=== PATIENT | female | born 1930 | race Caucasian/White ===

== ENCOUNTER → 2017-03-30 | Outpatient (CLI) | payer MEDICARE, OTHER ==
[~2017-03-30] MED LIST: CLON1 PO; DEXL30CA3 PO; METO25 PO; SIMV20TA6 PO; SUCR1ORA5 PO
== END | disposition home or self-care (01) ==
LOC: RADPV 12:06
PROVIDERS: ATTEND Family Medicine
DX: M16.0 Bilateral primary osteoarthritis of hip (principal); M47.816 Spondylosis without myelopathy or radiculopathy, lumbar region; M41.86 Other forms of scoliosis, lumbar region; M76.892 Other specified enthesopathies of left lower limb, excluding foot; M43.16 Spondylolisthesis, lumbar region; M79.605 Pain in left leg; M41.85 Other forms of scoliosis, thoracolumbar region; M85.88 Other specified disorders of bone density and structure, other site; M81.0 Age-related osteoporosis without current pathological fracture; M48.061 Spinal stenosis, lumbar region without neurogenic claudication; M48.07 Spinal stenosis, lumbosacral region
CPT/HCPCS: 72100; 73521

== ENCOUNTER → 2017-11-28 | Outpatient (CLI) | payer MEDICARE, OTHER | END | disposition home or self-care (01) | LOC: RADPV 09:10 | PROVIDERS: ATTEND Family Medicine | DX: I83.813 Varicose veins of bilateral lower extremities with pain (principal); R20.0 Anesthesia of skin; R20.2 Paresthesia of skin | CPT/HCPCS: 93925; 93970 ==

== ENCOUNTER 2019-06-03 14:08 | Inpatient (IN) | payer MEDICARE, OTHER ==
[~2019-06-03] VITALS: Ht 147.3 cm; Wt 59.9 kg
[~2019-06-03 14:08] MED LIST changes: -CLON1 PO; +MEMA10TA11 PO; +PIMA34CA PO; +QUET25TA PO; +SIMV-43 PO; -SIMV20TA6 PO; +SUCR1ORA15 PO; -SUCR1ORA5 PO
[2019-06-03] MEDS ORDERED: PROP10TA73 PO (14:18)
[2019-06-03] MEDS ORDERED: ISOS5TAB5 PO (14:18)
[2019-06-03] MEDS ORDERED: AMLO5TAB9 PO (14:18)
[2019-06-03] MEDS ORDERED: ONDANSETRON HCL 4 MG/2 ML VIAL IM ONE (15:00)
[2019-06-03] MEDS ORDERED: MORPHINE SULFATE 4 MG/ML SYRINGE IM ONE (15:00)
[2019-06-03] MEDS ORDERED: AMLO10TA7 PO (15:08)
[2019-06-03] MEDS ORDERED: ALEN70TA10 PO (15:08)
[2019-06-03] MEDS ORDERED: DEXL60CA3 PO (15:08)
[2019-06-03] MEDS ORDERED: OXYC-530 PO (15:08)
[2019-06-03] MEDS ORDERED: TRAZ-252 PO (15:08)
[2019-06-03] MEDS ORDERED: MEMA28CA5 PO (15:08)
[2019-06-03] MEDS ORDERED: ISOS60TA4 PO (15:08)
[2019-06-03] MEDS ORDERED: CYPR4TAB46 PO (15:08)
[2019-06-03] MEDS ORDERED: PROP40TA7 PO (15:08)
[2019-06-03] MEDS ORDERED: DONE10TA43 PO (15:08)
[2019-06-03] MEDS ORDERED: MORPHINE SULFATE 4 MG/ML SYRINGE IVP ONE (16:30)
[2019-06-03 16:48] LABS: BASOPHILS % (AUTO) 0.3 % (0.0-2.0); EOSINOPHILS % (AUTO) 0 % (1.0-6.0); HEMATOCRIT 36.8 % (36-46); HEMOGLOBIN 12.2 g/dL (12.0-16.0); LYMPHOCYTES % (AUTO) 8.5 % (22.0-44.0); MEAN CORPUSCULAR HEMOGLOBIN 26.9 pg (26.0-34.0); MEAN CORPUSCULAR HGB CONC 33.1 G/dL (31.0-37.0); MEAN CORPUSCULAR VOLUME 81 fL (80-100); MONOCYTES # (AUTO) 0.8 K/uL (0.1-1.0); MONOCYTES % (AUTO) 6.6 % (2.0-9.0); NEUTROPHILS # (AUTO) 10.3 K/uL (1.8-7.7); NEUTROPHILS % (AUTO) 84.6 % (40.0-70.0); PLATELET COUNT (AUTO) 365 K/uL (150-450); RED BLOOD CELL COUNT(AUTO) 4.52 MIL/uL (4.00-5.20); RED CELL DISTRIBUTION WIDTH 16.3 % (11.5-14.5)
[2019-06-03 17:03] LABS: ANION GAP 6 mmol/L (8-16); CALCIUM, TOTAL 9.3 mg/dL (8.8-10.5); CARBON DIOXIDE 28 mmol/L (22-29); CHLORIDE 103 mmol/L (98-107); CREATININE 0.85 mg/dL (0.60-1.30); GLUCOSE,RANDOM 152 mg/dL (70-110); POTASSIUM 4.4 mmol/L (3.5-5.1); SODIUM SERUM 137 mmol/L (136-145); UREA NITROGEN, BLOOD 13 mg/dL (7-18)
[2019-06-03 17:08] LABS: GLOMERULAR FILTR. RATE CALC > 60 mL/min (>60)
[2019-06-03 17:09] LABS: ALANINE AMINOTRANSFERASE 21 U/L (12-78); ALBUMIN 3.1 g/dL (3.4-5.0); ALKALINE PHOSPHATASE 103 U/L (46-116); ASPARTATE AMINOTRANSFERASE 21 U/L (15-37); BILIRUBIN,TOTAL 0.5 mg/dL (0.1-1.0); TOTAL PROTEIN, SERUM 7.4 g/dL (6.4-8.2)
[2019-06-03 17:28] LABS: PROTHROMBIN TIME 10.6 SEC (9.4-11.6)
[2019-06-03] MEDS ORDERED: ACETAMINOPHEN 325 MG TABLET PO PRN ×2 (20:30→23:30)
[2019-06-03] MEDS ORDERED: 0.9% SODIUM CHLORIDE 10 ML SYRINGE IVP PRN (20:30)
[2019-06-03] MEDS ORDERED: ONDANSETRON HCL 4 MG/2 ML VIAL IVP PRN ×2 (20:30→23:30)
[2019-06-03 20:47] VITALS: BP 158/68
[2019-06-03] MEDS ORDERED: SIMVASTATIN 20 MG TABLET PO SCH (23:15)
[2019-06-03] MEDS ORDERED: TraZODone HCL 50 MG TABLET PO SCH (23:15)
[2019-06-03] MEDS ORDERED: IPRATROPIUM BROMIDE 0.5 MG/2.5 ML NEB SOLUTION NEB PRN (23:30)
[2019-06-03] MEDS ORDERED: HYDROCODONE/ACETAMINOPHEN 5-325 MG TABLET PO PRN (23:30)
[2019-06-03] MEDS ORDERED: ZOLPIDEM TARTRATE 5 MG TABLET PO PRN (23:30)
[2019-06-03] MEDS ORDERED: BISACODYL 10 MG RECTAL RECTAL SUPPOSITORY PR PRN (23:30)
[2019-06-03] MEDS ORDERED: ALBUTEROL SULFATE 2.5 MG/0.5 ML NEB SOLUTION NEB PRN (23:30)
[2019-06-03] MEDS ORDERED: MAGNESIUM HYDROXIDE SUSPENSION 30 ML UDCUP PO PRN (23:30)
[2019-06-03 23:49] VITALS: BP 139/68
[2019-06-04] MEDS: HEPARIN SODIUM,PORCINE 5,000 UNITS/ML VIAL SQ SCH ×4 (00:03→23:28)
[2019-06-04 04:25] VITALS: BP 142/66
[2019-06-04] MEDS ORDERED: RINGERS SOLUTION,LACTATED 1,000 ML IV ONE ×2 (05:50→06:00)
[2019-06-04] MEDS ORDERED: BUPIVACAINE/EPI/PF 0.5% 30 ML VIAL ONE (05:55)
[2019-06-04] MEDS ORDERED: BUPIVACAINE LIPOSOME/PF 1.3%-13.3MG/ML SUSPENSION 20 ML VIAL INJ ONE (06:00)
[2019-06-04] MEDS ORDERED: SUGAMMADEX SODIUM 200 MG/2 ML VIAL IVP ONE (06:22)
[2019-06-04] MEDS ORDERED: LANSOPRAZOLE 30 MG CAPSULE PO SCH (06:30)
[2019-06-04] MEDS ORDERED: ALENDRONATE SODIUM 70 MG TABLET PO SCH (06:30)
[2019-06-04] MEDS ORDERED: FentaNYL CITRATE-PF 100 MCG/2 ML VIAL IVP PRN (07:15)
[2019-06-04] MEDS ORDERED: HYDROmorphone 2 MG/ML SYRINGE IVP PRN (07:15)
[2019-06-04] MEDS ORDERED: BusPIRone HCL 15 MG TABLET PO PRN (09:00)
[2019-06-04] MEDS ORDERED: MEMANTINE HCL 10 MG TABLET PO SCH ×2 (09:00→21:00)
[2019-06-04] MEDS ORDERED: BusPIRone HCL 15 MG TABLET PO SCH (09:00)
[2019-06-04] MEDS ORDERED: SUCRALFATE 1 GM/10 ML SUSPENSION UDCUP PO SCH (09:00)
[2019-06-04] MEDS ORDERED: PIMAVANSERIN TARTRATE 34 MG PO SCH (09:00)
[2019-06-04] MEDS ORDERED: PROPRANOLOL HCL 40 MG TABLET PO SCH ×2 (09:00)
[2019-06-04 09:05] VITALS: BP 145/66
[2019-06-04] MEDS: ISOSORBIDE MONONITRATE 60 MG ER TABLET PO SCH (09:24)
[2019-06-04] MEDS: QUEtiapine FUMARATE 25 MG TABLET PO SCH ×2 (09:24→21:29)
[2019-06-04] MEDS: PROPRANOLOL HCL 40 MG TABLET PO SCH ×2 (09:25→21:36)
[2019-06-04] MEDS: DEXLANSOPRAZOLE 60 MG PO SCH (09:26)
[2019-06-04] MEDS: AmLODIPine BESYLATE 10 MG TABLET PO SCH (09:29)
[2019-06-04] MEDS: DOCUSATE SODIUM 100 MG CAPSULE PO SCH ×2 (09:29→21:28)
[2019-06-04 11:26] VITALS: BP 138/64
[2019-06-04 15:49] VITALS: BP 134/63
[2019-06-04] MEDS: OxyCODONE HCL/ACETAMINOPHEN 5-325 MG TABLET PO PRN (18:44)
[2019-06-04 20:05] VITALS: BP 114/57
[2019-06-04] MEDS: OXYGEN THERAPY IH SCH ×2 (21:27→23:31)
[2019-06-04] MEDS: SIMVASTATIN 20 MG TABLET PO SCH (21:27)
[2019-06-04] MEDS: MEMANTINE 28 MG PO SCH (21:28)
[2019-06-04] MEDS: DONEPEZIL HCL 10 MG TABLET PO SCH (21:29)
[2019-06-04] MEDS: ESCITALOPRAM OXALATE 10 MG TABLET PO SCH (21:36)
[2019-06-04] MEDS ORDERED: PROPOFOL 1% 20 ML VIAL IVP ONE (21:46)
[2019-06-04] MEDS ORDERED: LIDOCAINE 2% 5 ML JELLY ONE (21:46)
[2019-06-04] MEDS ORDERED: NEOSTIGMINE METHYLSULFATE 1 MG/ML 10 ML VIAL IVP ONE (21:46)
[2019-06-04] MEDS ORDERED: ONDANSETRON HCL 2 MG/ML 20 ML VIAL IV ONE (21:46)
[2019-06-04] MEDS ORDERED: GLYCOPYRROLATE 0.2 MG/ML VIAL ONE (21:46)
[2019-06-04] MEDS ORDERED: ROCURONIUM BROMIDE 10 MG/ML 5 ML VIAL ONE (21:46)
[2019-06-04] MEDS: TraZODone HCL 50 MG TABLET PO SCH (23:27)
[2019-06-04 23:54] VITALS: BP 115/62
[2019-06-05 04:30] VITALS: BP 142/71
[2019-06-05] MEDS ORDERED: FentaNYL CITRATE-PF 100 MCG/2 ML VIAL IVP ONE (05:26)
[2019-06-05] MEDS ORDERED: HYDROmorphone 2 MG/ML SYRINGE IVP ONE (05:26)
[2019-06-05 07:38] VITALS: BP 127/65
[2019-06-05] MEDS: OXYGEN THERAPY IH SCH ×2 (08:00→20:00)
[2019-06-05] MEDS: HEPARIN SODIUM,PORCINE 5,000 UNITS/ML VIAL SQ SCH ×3 (09:04→23:44)
[2019-06-05] MEDS: ISOSORBIDE MONONITRATE 60 MG ER TABLET PO SCH (09:05)
[2019-06-05] MEDS: PROPRANOLOL HCL 40 MG TABLET PO SCH ×2 (09:05→20:58)
[2019-06-05] MEDS: QUEtiapine FUMARATE 25 MG TABLET PO SCH ×2 (09:05→20:57)
[2019-06-05] MEDS: DEXLANSOPRAZOLE 60 MG PO SCH (09:06)
[2019-06-05] MEDS: DOCUSATE SODIUM 100 MG CAPSULE PO SCH ×2 (09:06→20:57)
[2019-06-05] MEDS: AmLODIPine BESYLATE 10 MG TABLET PO SCH (09:06)
[2019-06-05] MEDS: MORPHINE SULFATE 2 MG/ML SYRINGE IVP PRN (09:46)
[2019-06-05 11:59] VITALS: BP 131/74
[2019-06-05 15:45] VITALS: BP 128/78
[2019-06-05 20:11] VITALS: BP 117/55
[2019-06-05] MEDS: MEMANTINE 28 MG PO SCH (20:56)
[2019-06-05] MEDS: ESCITALOPRAM OXALATE 10 MG TABLET PO SCH (20:57)
[2019-06-05] MEDS: DONEPEZIL HCL 10 MG TABLET PO SCH (20:58)
[2019-06-05] MEDS: SIMVASTATIN 20 MG TABLET PO SCH (20:58)
[2019-06-05] MEDS: TraZODone HCL 50 MG TABLET PO SCH (20:58)
[2019-06-05 23:45] VITALS: BP 114/67
[2019-06-06] MEDS: OxyCODONE HCL/ACETAMINOPHEN 5-325 MG TABLET PO PRN (02:31)
[2019-06-06 03:35] VITALS: BP 91/46
[2019-06-06 03:40] VITALS: BP 94/48
[2019-06-06 04:02] VITALS: BP 114/51
[2019-06-06] MEDS: OXYGEN THERAPY IH SCH (08:00)
[2019-06-06 08:07] VITALS: BP 123/63
[2019-06-06] MEDS: HEPARIN SODIUM,PORCINE 5,000 UNITS/ML VIAL SQ SCH ×2 (09:01→16:21)
[2019-06-06] MEDS: PROPRANOLOL HCL 40 MG TABLET PO SCH (09:02)
[2019-06-06] MEDS: AmLODIPine BESYLATE 10 MG TABLET PO SCH (09:02)
[2019-06-06] MEDS: ISOSORBIDE MONONITRATE 60 MG ER TABLET PO SCH (09:02)
[2019-06-06] MEDS: DOCUSATE SODIUM 100 MG CAPSULE PO SCH (09:02)
[2019-06-06] MEDS: QUEtiapine FUMARATE 25 MG TABLET PO SCH (09:03)
[2019-06-06] MEDS: DEXLANSOPRAZOLE 60 MG PO SCH (10:05)
[2019-06-06] MEDS: MORPHINE SULFATE 2 MG/ML SYRINGE IVP PRN ×2 (10:12→16:21)
[2019-06-06 11:43] VITALS: BP 106/56
[2019-06-06 15:50] VITALS: BP 113/51
== END 2019-06-06 17:45 | DRG 481 ==
LOC: EMS 14:12 → 6N 19:03 → 4E 06-04 08:44
PROVIDERS: ADMIT Hospitalist; ATTEND Hospitalist
PROC: 0QS604Z Reposition Right Upper Femur with Internal Fixation Device, Open Approach (ICD-10-PCS; principal; 2019-06-04 06:30)
DX: S72.001A Fracture of unspecified part of neck of right femur, initial encounter for closed fracture (principal); R65.10 Systemic inflammatory response syndrome (SIRS) of non-infectious origin without acute organ dysfunction; E44.1 Mild protein-calorie malnutrition; E78.5 Hyperlipidemia, unspecified; I10 Essential (primary) hypertension; G30.9 Alzheimer's disease, unspecified; F02.80 Dementia in other diseases classified elsewhere, unspecified severity, without behavioral disturbance, psychotic disturbance, mood disturbance, and anxiety; I49.9 Cardiac arrhythmia, unspecified; M19.90 Unspecified osteoarthritis, unspecified site; J45.909 Unspecified asthma, uncomplicated; J44.9 Chronic obstructive pulmonary disease, unspecified; K21.9 Gastro-esophageal reflux disease without esophagitis; K58.9 Irritable bowel syndrome, unspecified; Z96.652 Presence of left artificial knee joint; W18.39XA Other fall on same level, initial encounter; Y93.89 Activity, other specified; Z88.2 Allergy status to sulfonamides; Z87.11 Personal history of peptic ulcer disease; Z79.899 Other long term (current) drug therapy; Y92.89 Other specified places as the place of occurrence of the external cause; Y99.8 Other external cause status
CPT/HCPCS: 73502; 73503; 73552; 83036; 87081; 93005; 97162; 97167; 97530; 97535; C9290; G0238; G0378; J0690; J1170; J1644; J2270; J2405; J2704; J3010; J3490; J7120

== ENCOUNTER 2019-06-06 16:52 | Inpatient (IN) | payer MEDICARE, OTHER ==
[~2019-06-06] VITALS: Ht 152.4 cm; Wt 58.1 kg
[~2019-06-06 16:52] MED LIST changes: +ALEN70TA10 PO; +AMLO10TA7 PO; +CYPR4TAB46 PO; -DEXL30CA3 PO; +DEXL60CA3 PO; +DONE10TA43 PO; +ISOS60TA4 PO; -MEMA10TA11 PO; +MEMA28CA5 PO; -METO25 PO; +OXYC-530 PO; +PROP40TA7 PO; +TRAZ-252 PO
[2019-06-06 17:00] VITALS: BP 117/55
[2019-06-06] MEDS ORDERED: *PATIENT'S OWN MED [ENTER DRUG, DOSE, FREQUENCY IN COMMENTS] CLINICAL ONE ×3 (19:00)
[2019-06-06] MEDS ORDERED: ALBUTEROL SULFATE 2.5 MG/0.5 ML NEB SOLUTION NEB PRN (19:15)
[2019-06-06] MEDS ORDERED: MELATONIN 3 MG TABLET PO PRN (19:15)
[2019-06-06] MEDS ORDERED: ONDANSETRON HCL 4 MG TABLET PO PRN (19:15)
[2019-06-06] MEDS ORDERED: BISACODYL 10 MG RECTAL RECTAL SUPPOSITORY PR PRN (19:15)
[2019-06-06] MEDS ORDERED: MAGNESIUM HYDROXIDE SUSPENSION 30 ML UDCUP PO PRN (19:15)
[2019-06-06] MEDS ORDERED: BusPIRone HCL 15 MG TABLET PO PRN (19:15)
[2019-06-06] MEDS ORDERED: IPRATROPIUM BROMIDE 0.5 MG/2.5 ML NEB SOLUTION NEB PRN (19:15)
[2019-06-06] MEDS: SIMVASTATIN 20 MG TABLET PO SCH (20:53)
[2019-06-06] MEDS: QUEtiapine FUMARATE 25 MG TABLET PO SCH (20:54)
[2019-06-06] MEDS: MEMANTINE HCL 28 MG PO SCH (20:54)
[2019-06-06] MEDS: PIMAVANSERIN 34 MG PO SCH (20:54)
[2019-06-06] MEDS: TraZODone HCL 50 MG TABLET PO SCH (20:55)
[2019-06-06] MEDS: PROPRANOLOL HCL 40 MG TABLET PO SCH (20:55)
[2019-06-06] MEDS: DONEPEZIL HCL 10 MG TABLET PO SCH (20:55)
[2019-06-06] MEDS: HEPARIN SODIUM,PORCINE 5,000 UNITS/ML VIAL SQ SCH (20:55)
[2019-06-06] MEDS: DOCUSATE SODIUM 100 MG CAPSULE PO SCH (20:55)
[2019-06-06] MEDS: ESCITALOPRAM OXALATE 10 MG TABLET PO SCH (21:00)
[2019-06-06] MEDS ORDERED: INFLUENZA VIRUS VACCINE QVS 2019-20 (3YR+)/PF 60 MCG/0.5 ML SYRINGE IM ONE (23:00)
[2019-06-06] MEDS: 0.9% SODIUM CHLORIDE 10 ML SYRINGE IVP SCH (23:02)
[2019-06-06] MEDS: OXYGEN THERAPY IH SCH (23:03)
[2019-06-07 04:00] VITALS: BP 135/51
[2019-06-07 07:00] LABS: BASOPHILS % (AUTO) 0.4 % (0.0-2.0); EOSINOPHILS % (AUTO) 0.7 % (1.0-6.0); HEMATOCRIT 29.7 % (36-46); HEMOGLOBIN 9.7 g/dL (12.0-16.0); LYMPHOCYTES # (AUTO) 1.6 K/uL (1.0-4.8); LYMPHOCYTES % (AUTO) 13.1 % (22.0-44.0); MEAN CORPUSCULAR HEMOGLOBIN 26.4 pg (26.0-34.0); MEAN CORPUSCULAR HGB CONC 32.5 G/dL (31.0-37.0); MEAN CORPUSCULAR VOLUME 81 fL (80-100); MONOCYTES # (AUTO) 1.3 K/uL (0.1-1.0); MONOCYTES % (AUTO) 10.5 % (2.0-9.0); NEUTROPHILS % (AUTO) 75.3 % (40.0-70.0); PLATELET COUNT (AUTO) 329 K/uL (150-450); RED BLOOD CELL COUNT(AUTO) 3.65 MIL/uL (4.00-5.20); RED CELL DISTRIBUTION WIDTH 15.8 % (11.5-14.5)
[2019-06-07 07:15] VITALS: BP 116/53
[2019-06-07 07:23] LABS: ALANINE AMINOTRANSFERASE 14 U/L (12-78); ALKALINE PHOSPHATASE 85 U/L (46-116); ANION GAP 5 mmol/L (8-16); ASPARTATE AMINOTRANSFERASE 15 U/L (15-37); BILIRUBIN,TOTAL 0.5 mg/dL (0.1-1.0); CALCIUM, TOTAL 8.7 mg/dL (8.8-10.5); CARBON DIOXIDE 29 mmol/L (22-29); CHLORIDE 104 mmol/L (98-107); CREATININE 0.81 mg/dL (0.60-1.30); GLUCOSE,RANDOM 123 mg/dL (70-110); POTASSIUM 3.9 mmol/L (3.5-5.1); SODIUM SERUM 138 mmol/L (136-145); TOTAL PROTEIN, SERUM 6.1 g/dL (6.4-8.2); UREA NITROGEN, BLOOD 16 mg/dL (7-18)
[2019-06-07 07:27] LABS: GLOMERULAR FILTR. RATE CALC > 60 mL/min (>60)
[2019-06-07] MEDS: OXYGEN THERAPY IH SCH ×3 (08:56→23:05)
[2019-06-07] MEDS: DOCUSATE SODIUM 100 MG CAPSULE PO SCH ×2 (08:57→20:52)
[2019-06-07] MEDS: AmLODIPine BESYLATE 10 MG TABLET PO SCH (08:57)
[2019-06-07] MEDS: QUEtiapine FUMARATE 25 MG TABLET PO SCH ×2 (08:57→20:53)
[2019-06-07] MEDS: DEXLANSOPRAZOLE 60 MG PO SCH (08:57)
[2019-06-07] MEDS: PROPRANOLOL HCL 40 MG TABLET PO SCH ×2 (08:58→20:51)
[2019-06-07] MEDS: HEPARIN SODIUM,PORCINE 5,000 UNITS/ML VIAL SQ SCH ×3 (08:58→20:51)
[2019-06-07] MEDS: ISOSORBIDE MONONITRATE 60 MG ER TABLET PO SCH (08:58)
[2019-06-07] MEDS: 0.9% SODIUM CHLORIDE 10 ML SYRINGE IVP SCH ×3 (08:59→23:06)
[2019-06-07] MEDS: HYDROCODONE/ACETAMINOPHEN 5-325 MG TABLET PO PRN (10:00)
[2019-06-07] MEDS: OxyCODONE HCL/ACETAMINOPHEN 5-325 MG TABLET PO PRN (14:15)
[2019-06-07 15:30] VITALS: BP 102/68
[2019-06-07] MEDS: MEMANTINE HCL 28 MG PO SCH (20:51)
[2019-06-07] MEDS: ESCITALOPRAM OXALATE 10 MG TABLET PO SCH (20:51)
[2019-06-07] MEDS: PIMAVANSERIN 34 MG PO SCH (20:51)
[2019-06-07] MEDS: SENNA 187 MG TABLET PO SCH (20:52)
[2019-06-07] MEDS: DONEPEZIL HCL 10 MG TABLET PO SCH (20:52)
[2019-06-07] MEDS: TraZODone HCL 50 MG TABLET PO SCH (20:52)
[2019-06-07] MEDS: SIMVASTATIN 20 MG TABLET PO SCH (20:52)
[2019-06-07 23:00] VITALS: BP 107/62
[2019-06-08] MEDS: OxyCODONE HCL/ACETAMINOPHEN 5-325 MG TABLET PO PRN ×2 (06:00→20:21)
[2019-06-08 07:40] VITALS: BP 150/65
[2019-06-08 08:56] LABS: APPEARANCE,URINE CLOUDY (CLEAR); BILIRUBIN,URINE NEGATIVE (NEGATIVE); GLUCOSE, URINE (UA) NEGATIVE (NEGATIVE); KETONES,URINE NEGATIVE (NEGATIVE); LEUKOCYTE ESTERASE ,URINE MODERATE (NEGATIVE); NITRATE,URINE NEGATIVE (NEGATIVE); PH,URINE 6.5 (5.0-8.0); PROTEIN,URINE POS 1+ (NEGATIVE)
[2019-06-08] MEDS: DEXLANSOPRAZOLE 60 MG PO SCH (09:30)
[2019-06-08] MEDS: 0.9% SODIUM CHLORIDE 10 ML SYRINGE IVP SCH ×3 (09:31→23:26)
[2019-06-08] MEDS: DOCUSATE SODIUM 100 MG CAPSULE PO SCH ×2 (09:32→20:22)
[2019-06-08] MEDS: ISOSORBIDE MONONITRATE 60 MG ER TABLET PO SCH (09:32)
[2019-06-08] MEDS: PROPRANOLOL HCL 40 MG TABLET PO SCH ×2 (09:32→20:22)
[2019-06-08] MEDS: OXYGEN THERAPY IH SCH ×3 (09:33→23:26)
[2019-06-08] MEDS: QUEtiapine FUMARATE 25 MG TABLET PO SCH ×2 (09:33→20:21)
[2019-06-08] MEDS: AmLODIPine BESYLATE 10 MG TABLET PO SCH (09:33)
[2019-06-08 09:58] LABS: OCCULT BLOOD,URINE MODERATE (NEGATIVE)
[2019-06-08 10:00] LABS: BACTERIA,URINE Many /HPF (None Seen); WBC,URINE 26-50 /HPF (0-5)
[2019-06-08] MEDS: HYDROCODONE/ACETAMINOPHEN 5-325 MG TABLET PO PRN (10:11)
[2019-06-08 16:00] VITALS: BP 115/66
[2019-06-08] MEDS: TraZODone HCL 50 MG TABLET PO SCH (20:20)
[2019-06-08] MEDS: MEMANTINE HCL 28 MG PO SCH (20:20)
[2019-06-08] MEDS: PIMAVANSERIN 34 MG PO SCH (20:20)
[2019-06-08] MEDS: ESCITALOPRAM OXALATE 10 MG TABLET PO SCH (20:21)
[2019-06-08] MEDS: SENNA 187 MG TABLET PO SCH (20:22)
[2019-06-08] MEDS: SIMVASTATIN 20 MG TABLET PO SCH (20:22)
[2019-06-08] MEDS: DONEPEZIL HCL 10 MG TABLET PO SCH (20:22)
[2019-06-08 23:48] VITALS: BP 137/60
[2019-06-09] MEDS: OxyCODONE HCL/ACETAMINOPHEN 5-325 MG TABLET PO PRN (05:23)
[2019-06-09 07:15] VITALS: BP 136/56
[2019-06-09] MEDS: ACETAMINOPHEN 325 MG TABLET PO PRN ×2 (07:21→22:08)
[2019-06-09] MEDS: OXYGEN THERAPY IH SCH ×2 (08:00→16:00)
[2019-06-09] MEDS: DOCUSATE SODIUM 100 MG CAPSULE PO SCH ×2 (09:10→21:41)
[2019-06-09] MEDS: ENOXAPARIN SODIUM 40 MG/0.4 ML PF SYRINGE SQ SCH (09:10)
[2019-06-09] MEDS: AmLODIPine BESYLATE 10 MG TABLET PO SCH (09:10)
[2019-06-09] MEDS: ISOSORBIDE MONONITRATE 60 MG ER TABLET PO SCH (09:10)
[2019-06-09] MEDS: DEXLANSOPRAZOLE 60 MG PO SCH (09:10)
[2019-06-09] MEDS: 0.9% SODIUM CHLORIDE 10 ML SYRINGE IVP SCH ×2 (09:11→16:42)
[2019-06-09] MEDS: PROPRANOLOL HCL 40 MG TABLET PO SCH ×2 (09:11→21:37)
[2019-06-09] MEDS: QUEtiapine FUMARATE 25 MG TABLET PO SCH ×2 (09:11→21:36)
[2019-06-09] MEDS: HYDROCODONE/ACETAMINOPHEN 5-325 MG TABLET PO PRN (10:48)
[2019-06-09] MEDS ORDERED: OxyCODONE HCL 10 MG IR TABLET PO PRN (11:30)
[2019-06-09] MEDS: CIPROFLOXACIN HCL 250 MG TABLET PO SCH ×2 (12:43→21:35)
[2019-06-09] MEDS: LIDOCAINE 5% TRANSDERMAL PATCH TD SCH (12:43)
[2019-06-09] MEDS: DEXTRAN 70 0.1%/HYPROMELL 0.3% 0.9 ML OPHTHALMIC SOLUTION [PF] OD SCH ×2 (16:43→21:34)
[2019-06-09 18:30] VITALS: BP 105/54
[2019-06-09] MEDS: -LIDODERM PATCH NOTE- MISC SCH (21:29)
[2019-06-09 21:31] VITALS: BP 129/51
[2019-06-09] MEDS: MEMANTINE HCL 28 MG PO SCH (21:34)
[2019-06-09] MEDS: SENNA 187 MG TABLET PO SCH (21:35)
[2019-06-09] MEDS: PIMAVANSERIN 34 MG PO SCH (21:35)
[2019-06-09] MEDS: SIMVASTATIN 20 MG TABLET PO SCH (21:36)
[2019-06-09] MEDS: TraZODone HCL 50 MG TABLET PO SCH (21:36)
[2019-06-09] MEDS: ESCITALOPRAM OXALATE 10 MG TABLET PO SCH (21:37)
[2019-06-09] MEDS: DONEPEZIL HCL 10 MG TABLET PO SCH (21:39)
[2019-06-10] VITALS: BP 107/52
[2019-06-10] MEDS: OXYGEN THERAPY IH SCH
[2019-06-10] MEDS ORDERED: OXYGEN THERAPY IH PRN (01:00)
[2019-06-10 07:07] VITALS: BP 120/63
[2019-06-10] MEDS: ENOXAPARIN SODIUM 40 MG/0.4 ML PF SYRINGE SQ SCH (08:49)
[2019-06-10] MEDS: ISOSORBIDE MONONITRATE 60 MG ER TABLET PO SCH (08:49)
[2019-06-10] MEDS: DEXLANSOPRAZOLE 60 MG PO SCH (08:49)
[2019-06-10] MEDS: AmLODIPine BESYLATE 10 MG TABLET PO SCH (08:49)
[2019-06-10] MEDS: DEXTRAN 70 0.1%/HYPROMELL 0.3% 0.9 ML OPHTHALMIC SOLUTION [PF] OD SCH ×3 (08:49→20:13)
[2019-06-10] MEDS: CIPROFLOXACIN HCL 250 MG TABLET PO SCH ×2 (08:49→20:11)
[2019-06-10] MEDS: PROPRANOLOL HCL 40 MG TABLET PO SCH ×2 (08:49→20:11)
[2019-06-10] MEDS: QUEtiapine FUMARATE 25 MG TABLET PO SCH ×2 (08:50→20:12)
[2019-06-10] MEDS: DOCUSATE SODIUM 100 MG CAPSULE PO SCH ×2 (08:50→20:12)
[2019-06-10] MEDS: LIDOCAINE 5% TRANSDERMAL PATCH TD SCH (08:50)
[2019-06-10] MEDS: OxyCODONE HCL 5 MG IR TABLET PO PRN ×2 (13:31→20:05)
[2019-06-10 15:00] VITALS: BP 105/56
[2019-06-10] MEDS: ESCITALOPRAM OXALATE 10 MG TABLET PO SCH (20:11)
[2019-06-10] MEDS: SIMVASTATIN 20 MG TABLET PO SCH (20:11)
[2019-06-10] MEDS: DONEPEZIL HCL 10 MG TABLET PO SCH (20:11)
[2019-06-10] MEDS: SENNA 187 MG TABLET PO SCH (20:11)
[2019-06-10] MEDS: TraZODone HCL 50 MG TABLET PO SCH (20:11)
[2019-06-10] MEDS: PIMAVANSERIN 34 MG PO SCH (20:12)
[2019-06-10] MEDS: MEMANTINE HCL 28 MG PO SCH (20:12)
[2019-06-10] MEDS: -LIDODERM PATCH NOTE- MISC SCH (20:13)
[2019-06-10 20:45] VITALS: BP 106/48
[2019-06-11 00:48] VITALS: BP 121/51
[2019-06-11] MEDS: OxyCODONE HCL 5 MG IR TABLET PO PRN ×2 (06:29→19:12)
[2019-06-11 06:49] LABS: BASOPHILS % (AUTO) 0.9 % (0.0-2.0); HEMATOCRIT 31.9 % (36-46); HEMOGLOBIN 10.6 g/dL (12.0-16.0); LYMPHOCYTES # (AUTO) 2.2 K/uL (1.0-4.8); MEAN CORPUSCULAR HEMOGLOBIN 26.9 pg (26.0-34.0); MEAN CORPUSCULAR HGB CONC 33.3 G/dL (31.0-37.0); MEAN CORPUSCULAR VOLUME 81 fL (80-100); MONOCYTES % (AUTO) 12.3 % (2.0-9.0); NEUTROPHILS # (AUTO) 4.3 K/uL (1.8-7.7); NEUTROPHILS % (AUTO) 55.8 % (40.0-70.0); PLATELET COUNT (AUTO) 414 K/uL (150-450); RED BLOOD CELL COUNT(AUTO) 3.95 MIL/uL (4.00-5.20); RED CELL DISTRIBUTION WIDTH 15.7 % (11.5-14.5)
[2019-06-11 07:12] LABS: ANION GAP 7 mmol/L (8-16); CALCIUM, TOTAL 9.2 mg/dL (8.8-10.5); CARBON DIOXIDE 27 mmol/L (22-29); CHLORIDE 103 mmol/L (98-107); CREATININE 0.78 mg/dL (0.60-1.30); GLUCOSE,RANDOM 99 mg/dL (70-110); POTASSIUM 3.9 mmol/L (3.5-5.1); SODIUM SERUM 137 mmol/L (136-145); UREA NITROGEN, BLOOD 17 mg/dL (7-18)
[2019-06-11 07:13] LABS: GLOMERULAR FILTR. RATE CALC > 60 mL/min (>60)
[2019-06-11 07:25] VITALS: BP 124/60
[2019-06-11] MEDS: DEXLANSOPRAZOLE 60 MG PO SCH (08:42)
[2019-06-11] MEDS: ISOSORBIDE MONONITRATE 60 MG ER TABLET PO SCH (08:43)
[2019-06-11] MEDS: CIPROFLOXACIN HCL 250 MG TABLET PO SCH (08:43)
[2019-06-11] MEDS: DEXTRAN 70 0.1%/HYPROMELL 0.3% 0.9 ML OPHTHALMIC SOLUTION [PF] OD SCH ×3 (08:44→20:32)
[2019-06-11] MEDS: LIDOCAINE 5% TRANSDERMAL PATCH TD SCH (08:44)
[2019-06-11] MEDS: AmLODIPine BESYLATE 10 MG TABLET PO SCH (08:44)
[2019-06-11] MEDS: DOCUSATE SODIUM 100 MG CAPSULE PO SCH ×2 (08:45→20:31)
[2019-06-11] MEDS: ENOXAPARIN SODIUM 40 MG/0.4 ML PF SYRINGE SQ SCH (08:45)
[2019-06-11] MEDS: QUEtiapine FUMARATE 25 MG TABLET PO SCH ×2 (08:45→20:31)
[2019-06-11] MEDS: PROPRANOLOL HCL 40 MG TABLET PO SCH ×2 (09:11→20:31)
[2019-06-11] MEDS: OxyCODONE HCL 10 MG IR TABLET PO PRN (11:00)
[2019-06-11] MEDS: ACETAMINOPHEN 325 MG TABLET PO PRN (13:44)
[2019-06-11 16:00] VITALS: BP 147/57
[2019-06-11] MEDS: AMOX TR/POT CLAV 500 MG/125 MG TABLET PO SCH ×2 (16:58→20:31)
[2019-06-11] MEDS: MEMANTINE HCL 28 MG PO SCH (20:30)
[2019-06-11] MEDS: PIMAVANSERIN 34 MG PO SCH (20:30)
[2019-06-11] MEDS: SIMVASTATIN 20 MG TABLET PO SCH (20:31)
[2019-06-11] MEDS: TraZODone HCL 50 MG TABLET PO SCH (20:31)
[2019-06-11] MEDS: DONEPEZIL HCL 10 MG TABLET PO SCH (20:31)
[2019-06-11] MEDS: SENNA 187 MG TABLET PO SCH (20:31)
[2019-06-11] MEDS: -LIDODERM PATCH NOTE- MISC SCH (20:32)
[2019-06-11 20:45] VITALS: BP 155/74
[2019-06-11] MEDS: ESCITALOPRAM OXALATE 10 MG TABLET PO SCH (20:47)
[2019-06-12 03:00] VITALS: BP 123/52
[2019-06-12] MEDS: DOCUSATE SODIUM 283 MG/5 ML MINI-ENEMA PR PRN (05:39)
[2019-06-12] MEDS ORDERED: DEXTRAN 70 0.1%/HYPROMELL 0.3% 0.9 ML OPHTHALMIC SOLUTION [PF] OD PRN (06:00)
[2019-06-12] MEDS: OxyCODONE HCL 5 MG IR TABLET PO PRN (06:29)
[2019-06-12 07:29] VITALS: BP 132/52
[2019-06-12] MEDS: ENOXAPARIN SODIUM 40 MG/0.4 ML PF SYRINGE SQ SCH (08:25)
[2019-06-12] MEDS: ISOSORBIDE MONONITRATE 60 MG ER TABLET PO SCH (08:25)
[2019-06-12] MEDS: AmLODIPine BESYLATE 10 MG TABLET PO SCH (08:25)
[2019-06-12] MEDS: AMOX TR/POT CLAV 500 MG/125 MG TABLET PO SCH ×3 (08:25→20:31)
[2019-06-12] MEDS: QUEtiapine FUMARATE 25 MG TABLET PO SCH ×2 (08:25→20:34)
[2019-06-12] MEDS: DOCUSATE SODIUM 100 MG CAPSULE PO SCH ×2 (08:25→20:32)
[2019-06-12] MEDS: LIDOCAINE 5% TRANSDERMAL PATCH TD SCH (08:25)
[2019-06-12] MEDS: DEXLANSOPRAZOLE 60 MG PO SCH (08:25)
[2019-06-12] MEDS: PROPRANOLOL HCL 40 MG TABLET PO SCH ×2 (08:26→20:34)
[2019-06-12] MEDS: OxyCODONE HCL 10 MG IR TABLET PO PRN ×2 (10:33→14:20)
[2019-06-12 15:00] VITALS: BP 104/55
[2019-06-12] MEDS ORDERED: ALBUTEROL SULFATE HFA 90 MCG/PUFF 8 GM INHALER IH PRN (19:00)
[2019-06-12 20:27] VITALS: BP 132/58
[2019-06-12] MEDS: SIMVASTATIN 20 MG TABLET PO SCH (20:30)
[2019-06-12] MEDS: PIMAVANSERIN 34 MG PO SCH (20:30)
[2019-06-12] MEDS: MEMANTINE HCL 28 MG PO SCH (20:30)
[2019-06-12] MEDS: DONEPEZIL HCL 10 MG TABLET PO SCH (20:31)
[2019-06-12] MEDS: ESCITALOPRAM OXALATE 10 MG TABLET PO SCH (20:31)
[2019-06-12] MEDS: SENNA 187 MG TABLET PO SCH (20:33)
[2019-06-12] MEDS: TraZODone HCL 50 MG TABLET PO SCH (20:33)
[2019-06-12] MEDS: -LIDODERM PATCH NOTE- MISC SCH (20:50)
[2019-06-13 05:34] VITALS: BP 116/61
[2019-06-13] MEDS: OxyCODONE HCL 5 MG IR TABLET PO PRN ×2 (05:34→21:35)
[2019-06-13] MEDS: LIDOCAINE 5% TRANSDERMAL PATCH TD SCH (08:15)
[2019-06-13] MEDS: ENOXAPARIN SODIUM 40 MG/0.4 ML PF SYRINGE SQ SCH (08:15)
[2019-06-13] MEDS: ISOSORBIDE MONONITRATE 60 MG ER TABLET PO SCH (08:16)
[2019-06-13] MEDS: DOCUSATE SODIUM 100 MG CAPSULE PO SCH ×2 (08:16→20:35)
[2019-06-13] MEDS: DEXLANSOPRAZOLE 60 MG PO SCH (08:16)
[2019-06-13] MEDS: QUEtiapine FUMARATE 25 MG TABLET PO SCH ×2 (08:16→20:35)
[2019-06-13] MEDS: PROPRANOLOL HCL 40 MG TABLET PO SCH ×2 (08:16→20:34)
[2019-06-13] MEDS: AmLODIPine BESYLATE 10 MG TABLET PO SCH (08:16)
[2019-06-13] MEDS: AMOX TR/POT CLAV 500 MG/125 MG TABLET PO SCH ×3 (08:16→20:35)
[2019-06-13] MEDS: OxyCODONE HCL 10 MG IR TABLET PO PRN (08:24)
[2019-06-13 08:31] VITALS: BP 158/74
[2019-06-13] MEDS: ACETAMINOPHEN 325 MG TABLET PO PRN ×2 (10:41→14:55)
[2019-06-13 15:54] VITALS: BP 123/49
[2019-06-13] MEDS: MEMANTINE HCL 28 MG PO SCH (20:34)
[2019-06-13] MEDS: PIMAVANSERIN 34 MG PO SCH (20:34)
[2019-06-13] MEDS: ESCITALOPRAM OXALATE 10 MG TABLET PO SCH (20:34)
[2019-06-13] MEDS: DONEPEZIL HCL 10 MG TABLET PO SCH (20:35)
[2019-06-13] MEDS: -LIDODERM PATCH NOTE- MISC SCH (20:35)
[2019-06-13] MEDS: SENNA 187 MG TABLET PO SCH (20:35)
[2019-06-13] MEDS: SIMVASTATIN 20 MG TABLET PO SCH (20:35)
[2019-06-13] MEDS: TraZODone HCL 50 MG TABLET PO SCH (20:35)
[2019-06-13] MEDS: TAMSULOSIN HCL 0.4 MG CAPSULE PO SCH (20:35)
[2019-06-13] MEDS ORDERED: ENOXAPARIN SODIUM 40 MG/0.4 ML PF SYRINGE SQ SCH (21:00)
[2019-06-13] MEDS: ENOXAPARIN SODIUM 30 MG/0.3 ML PF SYRINGE SQ SCH (21:35)
[2019-06-14 00:31] VITALS: BP 107/43
[2019-06-14] MEDS: DOCUSATE SODIUM 283 MG/5 ML MINI-ENEMA PR PRN (05:25)
[2019-06-14 06:18] VITALS: BP 122/58
[2019-06-14] MEDS: OxyCODONE HCL 5 MG IR TABLET PO PRN ×2 (06:18→15:01)
[2019-06-14 07:45] VITALS: BP 144/69
[2019-06-14] MEDS: ENOXAPARIN SODIUM 30 MG/0.3 ML PF SYRINGE SQ SCH ×2 (09:00→20:29)
[2019-06-14] MEDS: AmLODIPine BESYLATE 10 MG TABLET PO SCH (09:00)
[2019-06-14] MEDS: PROPRANOLOL HCL 40 MG TABLET PO SCH ×2 (09:00→20:30)
[2019-06-14] MEDS: ISOSORBIDE MONONITRATE 60 MG ER TABLET PO SCH (09:00)
[2019-06-14] MEDS: DOCUSATE SODIUM 100 MG CAPSULE PO SCH ×2 (09:00→20:31)
[2019-06-14] MEDS: DEXLANSOPRAZOLE 60 MG PO SCH (09:00)
[2019-06-14] MEDS: QUEtiapine FUMARATE 25 MG TABLET PO SCH ×2 (09:00→20:29)
[2019-06-14] MEDS: AMOX TR/POT CLAV 500 MG/125 MG TABLET PO SCH ×3 (09:00→20:30)
[2019-06-14] MEDS: LIDOCAINE 5% TRANSDERMAL PATCH TD SCH (09:01)
[2019-06-14] MEDS: ACETAMINOPHEN 325 MG TABLET PO PRN ×3 (09:32→20:29)
[2019-06-14 15:02] VITALS: BP 103/60
[2019-06-14] MEDS: MEMANTINE HCL 28 MG PO SCH (20:29)
[2019-06-14] MEDS: PIMAVANSERIN 34 MG PO SCH (20:29)
[2019-06-14] MEDS: ESCITALOPRAM OXALATE 10 MG TABLET PO SCH (20:30)
[2019-06-14] MEDS: TAMSULOSIN HCL 0.4 MG CAPSULE PO SCH (20:30)
[2019-06-14] MEDS: DONEPEZIL HCL 10 MG TABLET PO SCH (20:30)
[2019-06-14] MEDS: TraZODone HCL 50 MG TABLET PO SCH (20:30)
[2019-06-14] MEDS: SIMVASTATIN 20 MG TABLET PO SCH (20:31)
[2019-06-14] MEDS: -LIDODERM PATCH NOTE- MISC SCH (20:31)
[2019-06-14] MEDS: SENNA 187 MG TABLET PO SCH (20:31)
[2019-06-14] MEDS ORDERED: TAMSULOSIN HCL 0.4 MG CAPSULE PO SCH (21:00)
[2019-06-15 00:30] VITALS: BP 127/58
[2019-06-15] MEDS ORDERED: ESCI10TA PO (03:55)
[2019-06-15] MEDS ORDERED: DOCU-275 PO (03:55)
[2019-06-15] MEDS ORDERED: AMOX1TAB15 PO (03:58)
[2019-06-15] MEDS ORDERED: TAMS-13 PO (03:58)
[2019-06-15] MEDS: ACETAMINOPHEN 325 MG TABLET PO PRN ×2 (05:50→14:12)
[2019-06-15 08:55] VITALS: BP 150/72
[2019-06-15] MEDS: LIDOCAINE 5% TRANSDERMAL PATCH TD SCH (09:21)
[2019-06-15] MEDS: ENOXAPARIN SODIUM 30 MG/0.3 ML PF SYRINGE SQ SCH ×2 (09:22→19:57)
[2019-06-15] MEDS: AmLODIPine BESYLATE 10 MG TABLET PO SCH (09:22)
[2019-06-15] MEDS: DEXLANSOPRAZOLE 60 MG PO SCH (09:22)
[2019-06-15] MEDS: QUEtiapine FUMARATE 25 MG TABLET PO SCH ×2 (09:23→19:56)
[2019-06-15] MEDS: AMOX TR/POT CLAV 500 MG/125 MG TABLET PO SCH ×3 (09:23→19:56)
[2019-06-15] MEDS: DOCUSATE SODIUM 100 MG CAPSULE PO SCH ×2 (09:23→19:57)
[2019-06-15] MEDS: ISOSORBIDE MONONITRATE 60 MG ER TABLET PO SCH (09:23)
[2019-06-15] MEDS: PROPRANOLOL HCL 40 MG TABLET PO SCH ×2 (09:23→21:01)
[2019-06-15] MEDS: OxyCODONE HCL 5 MG IR TABLET PO PRN (09:37)
[2019-06-15 15:30] VITALS: BP 111/52
[2019-06-15] MEDS: OxyCODONE HCL 10 MG IR TABLET PO PRN ×2 (15:38→19:57)
[2019-06-15 16:00] VITALS: BP 111/52
[2019-06-15] MEDS: MEMANTINE HCL 28 MG PO SCH (19:55)
[2019-06-15] MEDS: PIMAVANSERIN 34 MG PO SCH (19:55)
[2019-06-15] MEDS: TraZODone HCL 50 MG TABLET PO SCH (19:56)
[2019-06-15] MEDS: SIMVASTATIN 20 MG TABLET PO SCH (19:56)
[2019-06-15] MEDS: ESCITALOPRAM OXALATE 10 MG TABLET PO SCH (19:57)
[2019-06-15] MEDS: TAMSULOSIN HCL 0.4 MG CAPSULE PO SCH (19:57)
[2019-06-15] MEDS: SENNA 187 MG TABLET PO SCH (19:57)
[2019-06-15] MEDS: DONEPEZIL HCL 10 MG TABLET PO SCH (19:58)
[2019-06-15 20:00] VITALS: BP 139/61
[2019-06-15] MEDS: -LIDODERM PATCH NOTE- MISC SCH (20:08)
[2019-06-16] VITALS: BP 114/47
[2019-06-16] MEDS: ACETAMINOPHEN 325 MG TABLET PO PRN ×2 (06:00→21:17)
[2019-06-16] MEDS: LIDOCAINE 5% TRANSDERMAL PATCH TD SCH (08:12)
[2019-06-16] MEDS: DEXLANSOPRAZOLE 60 MG PO SCH (08:12)
[2019-06-16] MEDS: ENOXAPARIN SODIUM 30 MG/0.3 ML PF SYRINGE SQ SCH ×2 (08:12→20:58)
[2019-06-16] MEDS: QUEtiapine FUMARATE 25 MG TABLET PO SCH ×2 (08:13→20:57)
[2019-06-16] MEDS: PROPRANOLOL HCL 40 MG TABLET PO SCH ×2 (08:13→20:58)
[2019-06-16] MEDS: ISOSORBIDE MONONITRATE 60 MG ER TABLET PO SCH (08:13)
[2019-06-16] MEDS: AMOX TR/POT CLAV 500 MG/125 MG TABLET PO SCH ×3 (08:13→20:56)
[2019-06-16] MEDS: AmLODIPine BESYLATE 10 MG TABLET PO SCH (08:13)
[2019-06-16] MEDS: DOCUSATE SODIUM 100 MG CAPSULE PO SCH ×2 (08:14→20:57)
[2019-06-16] MEDS: POLYETHYLENE GLYCOL 3350 17 GM PACKET PO SCH (08:14)
[2019-06-16] MEDS: OxyCODONE HCL 5 MG IR TABLET PO PRN (08:26)
[2019-06-16 08:27] VITALS: BP 150/72
[2019-06-16 15:34] VITALS: BP 128/59
[2019-06-16 20:55] VITALS: BP 114/73
[2019-06-16] MEDS: MEMANTINE HCL 28 MG PO SCH (20:56)
[2019-06-16] MEDS: TAMSULOSIN HCL 0.4 MG CAPSULE PO SCH (20:57)
[2019-06-16] MEDS: TraZODone HCL 50 MG TABLET PO SCH (20:57)
[2019-06-16] MEDS: ESCITALOPRAM OXALATE 10 MG TABLET PO SCH (20:57)
[2019-06-16] MEDS: DONEPEZIL HCL 10 MG TABLET PO SCH (20:57)
[2019-06-16] MEDS: PIMAVANSERIN 34 MG PO SCH (20:57)
[2019-06-16] MEDS: SENNA 187 MG TABLET PO SCH (20:58)
[2019-06-16] MEDS: SIMVASTATIN 20 MG TABLET PO SCH (20:58)
[2019-06-16] MEDS: -LIDODERM PATCH NOTE- MISC SCH (21:42)
[2019-06-16 23:17] VITALS: BP 97/57
[2019-06-16] MEDS: OxyCODONE HCL 10 MG IR TABLET PO PRN (23:51)
[2019-06-17] MEDS: DOCUSATE SODIUM 100 MG CAPSULE PO SCH ×2 (07:49→20:39)
[2019-06-17] MEDS: PROPRANOLOL HCL 40 MG TABLET PO SCH ×2 (07:49→20:40)
[2019-06-17] MEDS: AmLODIPine BESYLATE 10 MG TABLET PO SCH (07:49)
[2019-06-17] MEDS: AMOX TR/POT CLAV 500 MG/125 MG TABLET PO SCH ×3 (07:49→20:40)
[2019-06-17] MEDS: POLYETHYLENE GLYCOL 3350 17 GM PACKET PO SCH (07:50)
[2019-06-17] MEDS: OxyCODONE HCL 5 MG IR TABLET PO PRN ×2 (07:50→20:36)
[2019-06-17] MEDS: LIDOCAINE 5% TRANSDERMAL PATCH TD SCH (07:51)
[2019-06-17] MEDS: DEXLANSOPRAZOLE 60 MG PO SCH (07:51)
[2019-06-17] MEDS: ENOXAPARIN SODIUM 30 MG/0.3 ML PF SYRINGE SQ SCH ×2 (07:52→20:41)
[2019-06-17] MEDS: QUEtiapine FUMARATE 25 MG TABLET PO SCH ×2 (07:55→21:18)
[2019-06-17] MEDS: ISOSORBIDE MONONITRATE 60 MG ER TABLET PO SCH (07:55)
[2019-06-17 08:00] VITALS: BP 144/68
[2019-06-17] MEDS: ACETAMINOPHEN 325 MG TABLET PO PRN (10:15)
[2019-06-17] MEDS ORDERED: ACETAMINOPHEN/CODEINE 300-30 MG TABLET PO PRN (12:15)
[2019-06-17 15:30] VITALS: BP 134/66
[2019-06-17] MEDS: TAMSULOSIN HCL 0.4 MG CAPSULE PO SCH (20:39)
[2019-06-17] MEDS: SENNA 187 MG TABLET PO SCH (20:40)
[2019-06-17] MEDS: -LIDODERM PATCH NOTE- MISC SCH (20:40)
[2019-06-17] MEDS: ESCITALOPRAM OXALATE 10 MG TABLET PO SCH (20:40)
[2019-06-17] MEDS: SIMVASTATIN 20 MG TABLET PO SCH (20:40)
[2019-06-17] MEDS: DONEPEZIL HCL 10 MG TABLET PO SCH (20:40)
[2019-06-17] MEDS: TraZODone HCL 50 MG TABLET PO SCH (20:40)
[2019-06-17] MEDS: PIMAVANSERIN 34 MG PO SCH (20:45)
[2019-06-17] MEDS: MEMANTINE HCL 28 MG PO SCH (20:45)
[2019-06-17 23:43] VITALS: BP 129/66
[2019-06-18 07:30] VITALS: BP 149/58
[2019-06-18] MEDS: OxyCODONE HCL 5 MG IR TABLET PO PRN ×2 (08:44→13:27)
[2019-06-18] MEDS: DOCUSATE SODIUM 100 MG CAPSULE PO SCH ×2 (09:00→20:56)
[2019-06-18] MEDS: AmLODIPine BESYLATE 10 MG TABLET PO SCH (09:21)
[2019-06-18] MEDS: ISOSORBIDE MONONITRATE 60 MG ER TABLET PO SCH (09:21)
[2019-06-18] MEDS: ENOXAPARIN SODIUM 30 MG/0.3 ML PF SYRINGE SQ SCH ×2 (09:21→20:54)
[2019-06-18] MEDS: AMOX TR/POT CLAV 500 MG/125 MG TABLET PO SCH ×2 (09:21→16:03)
[2019-06-18] MEDS: PROPRANOLOL HCL 40 MG TABLET PO SCH ×2 (09:21→20:56)
[2019-06-18] MEDS: QUEtiapine FUMARATE 25 MG TABLET PO SCH (09:21)
[2019-06-18] MEDS: DEXLANSOPRAZOLE 60 MG PO SCH (09:22)
[2019-06-18] MEDS: LIDOCAINE 5% TRANSDERMAL PATCH TD SCH (09:22)
[2019-06-18] MEDS: POLYETHYLENE GLYCOL 3350 17 GM PACKET PO SCH (09:23)
[2019-06-18 15:00] VITALS: BP 118/58
[2019-06-18 15:53] LABS: APPEARANCE,URINE CLOUDY (CLEAR); BILIRUBIN,URINE NEGATIVE (NEGATIVE); GLUCOSE, URINE (UA) NEGATIVE (NEGATIVE); KETONES,URINE TRACE mg/dL (NEGATIVE); LEUKOCYTE ESTERASE ,URINE SMALL (NEGATIVE); NITRATE,URINE NEGATIVE (NEGATIVE); OCCULT BLOOD,URINE NEGATIVE (NEGATIVE); PROTEIN,URINE TRACE (NEGATIVE); UROBILINOGEN,URINE 0.2 mg/dL (<=1.0)
[2019-06-18 16:14] LABS: BACTERIA,URINE Few /HPF (None Seen); RBC,URINE None Seen /HPF (0-2); SQUAMOUS EPITHELIAL CELL,UR Many /LPF (None Seen); YEAST,URINE Moderate /HPF (None Seen)
[2019-06-18 20:50] VITALS: BP 149/65
[2019-06-18] MEDS: MEMANTINE HCL 28 MG PO SCH (20:54)
[2019-06-18] MEDS: PIMAVANSERIN 34 MG PO SCH (20:54)
[2019-06-18] MEDS: SIMVASTATIN 20 MG TABLET PO SCH (20:54)
[2019-06-18] MEDS: ESCITALOPRAM OXALATE 10 MG TABLET PO SCH (20:55)
[2019-06-18] MEDS: SENNA 187 MG TABLET PO SCH (20:56)
[2019-06-18] MEDS: TAMSULOSIN HCL 0.4 MG CAPSULE PO SCH (20:56)
[2019-06-18] MEDS ORDERED: QUEtiapine FUMARATE 25 MG TABLET PO SCH (21:00)
[2019-06-18] MEDS: ACETAMINOPHEN 325 MG TABLET PO PRN (21:00)
[2019-06-18] MEDS: DONEPEZIL HCL 10 MG TABLET PO SCH (21:02)
[2019-06-18] MEDS: -LIDODERM PATCH NOTE- MISC SCH (21:02)
[2019-06-18] MEDS ORDERED: SODIUM CL IRRIG SOLN BOTTLE 250 ML IRRIG ONE (22:02)
[2019-06-18] MEDS ORDERED: POLY17PO PO (23:30)
[2019-06-19] VITALS: BP 114/47
[2019-06-19] MEDS ORDERED: LIDO700A15 TP (07:04)
[2019-06-19] MEDS ORDERED: POLY238P2 PO (08:35)
[2019-06-19] MEDS: LIDOCAINE 5% TRANSDERMAL PATCH TD SCH (08:42)
[2019-06-19] MEDS: ENOXAPARIN SODIUM 30 MG/0.3 ML PF SYRINGE SQ SCH (08:42)
[2019-06-19] MEDS: DOCUSATE SODIUM 100 MG CAPSULE PO SCH (08:43)
[2019-06-19] MEDS: PROPRANOLOL HCL 40 MG TABLET PO SCH (08:43)
[2019-06-19] MEDS: AmLODIPine BESYLATE 10 MG TABLET PO SCH (08:43)
[2019-06-19] MEDS: QUEtiapine FUMARATE 25 MG TABLET PO SCH (08:43)
[2019-06-19] MEDS: ISOSORBIDE MONONITRATE 60 MG ER TABLET PO SCH (08:43)
[2019-06-19] MEDS: DEXLANSOPRAZOLE 60 MG PO SCH (08:43)
[2019-06-19] MEDS: POLYETHYLENE GLYCOL 3350 17 GM PACKET PO SCH (08:52)
[2019-06-19 09:20] VITALS: BP 145/68
[2019-06-19] MEDS: OxyCODONE HCL 5 MG IR TABLET PO PRN (09:20)
[2019-06-19 09:30] VITALS: BP 145/68
[2019-06-19] MEDS ORDERED: ACET1TAB12 PO (10:44)
[2019-06-19] MEDS ORDERED: ASPI-728 PO (10:46)
== END 2019-06-19 12:05 | disposition home health service (06) | DRG 536 ==
LOC: 2WR 16:52
PROVIDERS: ADMIT Physical Medicine & Rehabilitation; ATTEND Physical Medicine & Rehabilitation
DX: S72.141A Displaced intertrochanteric fracture of right femur, initial encounter for closed fracture (principal); N39.0 Urinary tract infection, site not specified; E66.9 Obesity, unspecified; E78.5 Hyperlipidemia, unspecified; F03.90 Unspecified dementia, unspecified severity, without behavioral disturbance, psychotic disturbance, mood disturbance, and anxiety; F32.9 Major depressive disorder, single episode, unspecified; F41.9 Anxiety disorder, unspecified; G89.29 Other chronic pain; I10 Essential (primary) hypertension; J44.9 Chronic obstructive pulmonary disease, unspecified; K21.9 Gastro-esophageal reflux disease without esophagitis; M19.90 Unspecified osteoarthritis, unspecified site; Z79.899 Other long term (current) drug therapy; Z96.652 Presence of left artificial knee joint; Z91.81 History of falling; Z82.49 Family history of ischemic heart disease and other diseases of the circulatory system; Z87.11 Personal history of peptic ulcer disease; Z88.2 Allergy status to sulfonamides; Z68.26 Body mass index [BMI] 26.0-26.9, adult
CPT/HCPCS: 73502; 87081; 87086; 92507; 92521; 93971; 97110; 97116; 97162; 97166; 97530; 97535; 99366; J1644; J1650

== ENCOUNTER → 2021-02-10 | Outpatient (CLI) | payer MEDICARE, OTHER ==
[~2021-02-10] MED LIST changes: +ACET-2080 PO; -ALEN70TA10 PO; +ALEN70TA65 PO; +AMLO-258 PO; -AMLO10TA7 PO; +ASPI-1450 PO; -CYPR4TAB46 PO; +DOCU-270 PO; +ESCI-8 PO; -ISOS60TA4 PO; +ISOS60TA77 PO; +LIDO700A15 TP; -OXYC-530 PO; +POLY238P PO; -SUCR1ORA15 PO; +TAMS-13 PO; -TRAZ-252 PO
== END | disposition home or self-care (01) ==
LOC: RADPV 12:39
PROVIDERS: ATTEND Internal Medicine Cardiovascular Disease
DX: I82.451 Acute embolism and thrombosis of right peroneal vein (principal); M71.21 Synovial cyst of popliteal space [Baker], right knee; M79.662 Pain in left lower leg
CPT/HCPCS: 93925; 93970